=== PATIENT | male | born 1965 | race Caucasian/White ===

== ENCOUNTER 2017-06-16 15:30 | Emergency (ER) | payer SELFPAY ==
[2017-06-16 16:12] LABS: Basophils % (Auto) 0.8 % (0.0-1.8); Eosinophils % (Auto) 3.1 % (0.0-4.3); Hemoglobin 14.8 gm/dl (11.8-15.2); Mean Corpuscular HGB Conc 34 % (32-34); Mean Corpuscular Hemoglobin 30 pg (28-32); Mean Corpuscular Volume 88 fl (84-94); Platelet Count 222 K/mm3 (140-440); Red Blood Count 4.97 M/mm3 (3.65-5.03); Red Cell Distribution Width 13.3 % (13.2-15.2); White Blood Count 6.6 K/mm3 (4.5-11.0)
[2017-06-16 16:33] LABS: Anion Gap 20 mmol/L; BUN/Creatinine Ratio 13; Blood Urea Nitrogen 14 mg/dL (9-20); Calcium 8.8 mg/dL (8.4-10.2); Carbon Dioxide 24 mmol/L (22-30); Chloride 96.2 mmol/L (98-107); Glucose 495 mg/dL (75-100); Potassium 4.5 mmol/L (3.6-5.0); Sodium 136 mmol/L (137-145)
[2017-06-16 16:51] LABS: Bilirubin,Urine NEG (Negative); Blood,Urine NEG (Negative); Ketones,Urine NEG (Negative); Leukocyte Esterase,Urine NEG (Negative); Mucus,Urine FEW /HPF; Nitrite,Urine NEG (Negative); Protein,Urine <15 mg/dL mg/dL (Negative); Urobilinogen,Urine < 2.0 mg/dL (<2.0)
[2017-06-16 16:55] LABS: WBC,Urine < 1.0 /HPF (0.0-6.0)
[2017-06-16] MEDS ORDERED: NACL 0.9% 1000 ML 1,000 ML IV ONE ×3 (20:58→22:41)
[2017-06-16 22:24] VITALS: BP 107/74
--- NOTE | 2017-06-16 22:49 | Emergency Department Report ---
HPI - General Chief Complaint: Hyperglycemia Time Seen by Provider: 06/16/17 20:57 - HPI HPI: This is a 51-year-old male presents to the emergency department with complaint of elevated blood sugar. He went to see the physician at [facility] and was given a prescription for his diabetic medications but has not yet gotten them filled. He was encouraged to come to the emergency department as his blood sugar was greater than 500 when I checked it. He does have a history of [id number] diabetes. He admits to some increased urination frequency and increased thirst but otherwise does not have any chest pain, shortness of breath, abdominal pain, nausea, vomiting or fever. No recent travel or sick contacts at home. ED Past Medical Hx - Past Medical History Previous Medical History?: Yes Hx Diabetes: Yes - Surgical History Past Surgical History?: No - Social History Smoking Status: Current Every Day Smoker Substance Use Type: Alcohol, Prescribed - Medications Home Medications: Home Medications Medication Instructions Recorded Confirmed Last Taken Type Unobtainable 06/16/17 06/16/17 Unknown History ED Review of Systems ROS: Stated complaint: BLOOD SUGAR HIGH Other details as noted in HPI Comment: All other systems reviewed and negative Constitutional: denies: chills, fever Eyes: denies: eye pain, eye discharge, vision change ENT: denies: ear pain, throat pain Respiratory: denies: cough, shortness of breath, wheezing Cardiovascular: denies: chest pain, palpitations Endocrine: increased thirst, increased urine Gastrointestinal: denies: abdominal pain, nausea, diarrhea Genitourinary: frequency. denies: dysuria Musculoskeletal: denies: back pain, joint swelling, arthralgia Skin: denies: rash, lesions Neurological: denies: headache, weakness, paresthesias Physical Exam - Physical Exam Vital Signs: Vital Signs 06/16/17 06/16/17 15:44 22:23 Temperature 97.9 F Pulse Rate 74 64 Respiratory 20 16 Rate Blood Pressure 116/75 Blood Pressure 107/74 [Left] O2 Sat by Pulse 99 98 Oximetry Physical Exam: GENERAL: The patient is well-developed well-nourished. HENT: Normocephalic. Atraumatic. Patient has moist mucous membranes. EYES: Extraocular motions are intact. Pupils equal reactive to light bilaterally. NECK: Supple. Trachea is midline. CHEST/LUNGS: Clear to auscultation. There is no respiratory distress noted. HEART/CARDIOVASCULAR: Regular. There is no tachycardia. There is no gallop rub or murmur. ABDOMEN: Abdomen is soft, nontender. Patient has normal bowel sounds. There is no abdominal distention. SKIN: Skin is warm and dry. NEURO: The patient is awake, alert, and oriented. The patient is cooperative. The patient has no focal neurologic deficits. The patient has normal speech and gait. MUSCULOSKELETAL: There is no tenderness or deformity. There is no limitation range of motion. There is no evidence of acute injury. ED Course Vital Signs 06/16/17 06/16/17 15:44 22:23 Temperature 97.9 F Pulse Rate 74 64 Respiratory 20 16 Rate Blood Pressure 116/75 Blood Pressure 107/74 [Left] O2 Sat by Pulse 99 98 Oximetry ED Medical Decision Making - Lab Data Result diagrams: 06/16/17 15:54 06/16/17 15:54 - Medical Decision Making 51-year-old male presents with hyperglycemia and uncontrolled diabetes. He had been out of his medication for a little while but did get a prescription from his primary care clinic. His blood sugar was about 500. He does not appear to be in diabetic ketoacidosis as there is no venous acidosis and not a significant elevation in the anion gap. He was given IV fluid resuscitation and it did require a few doses of insulin and eventually his blood sugar came down to about 170. The patient does not appear in any acute distress and is asking for discharge home. We discussed trying to stay away from foods that are high in sugar, carbohydrates and starches. He will start his two oral diabetes medications starting in the morning and he has been encouraged to keep a blood sugar log. He will return to the ER with any worsening of symptoms or any acute distress. - Differential Diagnosis DKA, HHNK, Medication noncompliance Critical Care Time: No Critical care attestation.: If time is entered above; I have spent that time in minutes in the direct care of this critically ill patient, excluding procedure time. ED Disposition Clinical Impression: Hyperglycemia Uncontrolled diabetes mellitus Qualifiers: Diabetes mellitus type: type 2 Diabetes mellitus complication status: with hyperglycemia Diabetes mellitus assistant terminal manager insulin use: without group home use Qualified Code(s): E11.65 - Type 2 diabetes mellitus with hyperglycemia Disposition: DC-01 TO HOME OR SELFCARE Is pt being admited?: No Condition: Stable Instructions: Diabetic Hyperglycemia (ED) Additional Instructions: Please follow-up with your primary care physician in the next few days. Try and stay away from foods that are high in sugar, carbohydrates and starches. Keep a blood pressure log. Return to the emergency Department with any worsening of your symptoms or any acute distress. Referrals: PRIMARY CARE, [Primary Care Provider] - 3-5 Days Time of Disposition: 01:14 Print Language: KAZAKH
[2017-06-17] MEDS ORDERED: NACL 0.9% 1000 ML 1,000 ML IV ONE (00:03)
== END 2017-06-17 01:45 | disposition home or self-care (01) ==
LOC: ED 15:30
DX: E11.65 Type 2 diabetes mellitus with hyperglycemia (principal); F17.200 Nicotine dependence, unspecified, uncomplicated
CPT/HCPCS: 36415; 80048; 81001; 82805; 82962; 85025; 96361; 96374; 96376; 99284; J7030; J1815

== ENCOUNTER 2019-07-02 12:09 | Emergency (ER) | payer SELFPAY ==
--- NOTE | 2019-07-02 12:37 | Event Note ---
ED Screening Note ED Screening Note: BS is 369 in triage on states his BG was 500 generalized body aches no vomiting no fever no recent illness has not taken his blood sugar medication 6 months states it was 500 mg BID, does not remember the name This initial assessment/diagnostic orders/clinical plan/treatment(s) is/are subj ect to change based on patients health status, clinical progression and re- assessment by fellow clinical providers in the ED. Further treatment and workup at subsequent clinical providers discretion. Patient/guardian urged not to elope from the ED as their condition may be serious if not clinically assessed and managed. Initial orders include: labs, UA
[2019-07-02 12:52] VITALS: BP 107/75
[2019-07-02] MEDS ORDERED: INSULIN REGULAR, HUMAN 100 UNITS/1 ML IV ONE (12:56)
[2019-07-02] MEDS ORDERED: SODIUM CHLORIDE 0.9% 1000 ML 1,000 ML IV ONE ×2 (12:56→13:39)
--- NOTE | 2019-07-02 13:02 | Emergency Department Report ---
ED General Adult HPI - General Chief complaint: Hyperglycemia Stated complaint: HYPERGLYCEMIA Time Seen by Provider: 07/02/19 12:34 Source: patient, family Mode of arrival: Ambulatory Limitations: Language Barrier - History of Present Illness Initial comments: He is a 53-year-old male with a history of diabetes uncontrolled with medication who presents to ED planing of heartless sugar and mild generalized pain. Patient states he used to take 500 mg of metformin twice a day and ran out of his medication has not taken medication for the past 8 months. Patient states he has been eating well. Patient states he does not have a primary care physician and was unable to follow-up. She denies chest pain, shortness of breath, fever, nausea vomiting and abdominal pain Severity scale (0 -10): 0 - Related Data Previous Rx's Medication Instructions Recorded Last Taken Type metFORMIN [Glucophage] 500 mg PO BID #60 tablet 07/02/19 Unknown Rx Allergies Allergy/AdvReac Type Severity Reaction Status Date / Time No Known Allergies Allergy Unverified 06/16/17 15:42 ED Review of Systems ROS: Stated complaint: HYPERGLYCEMIA Other details as noted in HPI ED Past Medical Hx - Past Medical History Previous Medical History?: Yes Hx Diabetes: Yes - Surgical History Past Surgical History?: No - Social History Smoking Status: Never Smoker Substance Use Type: Alcohol - Medications Home Medications: Home Medications Medication Instructions Recorded Confirmed Last Taken Type metFORMIN [Glucophage] 500 mg PO BID #60 tablet 07/02/19 Unknown Rx ED Physical Exam - General Limitations: Language Barrier General appearance: alert, in no apparent distress - Head Head exam: Present: atraumatic, normocephalic - Eye Eye exam: Present: normal appearance - ENT ENT exam: Present: mucous membranes moist - Neck Neck exam: Present: normal inspection - Respiratory Respiratory exam: Present: normal lung sounds bilaterally. Absent: respiratory distress - Cardiovascular Cardiovascular Exam: Present: regular rate, normal rhythm. Absent: systolic murmur, diastolic murmur, rubs, gallop - GI/Abdominal GI/Abdominal exam: Present: soft, normal bowel sounds. Absent: distended, tenderness, guarding, mass - Rectal Rectal exam: Present: deferred - Extremities Exam Extremities exam: Present: normal inspection - Back Exam Back exam: Present: normal inspection - Neurological Exam Neurological exam: Present: alert, oriented X3, normal gait - Psychiatric Psychiatric exam: Present: normal affect, normal mood - Skin Skin exam: Present: warm, dry, intact, normal color. Absent: rash ED Course Vital Signs 07/02/19 07/02/19 12:10 12:37 Temperature 98 F Pulse Rate 90 82 Respiratory 18 14 Rate Blood Pressure 112/82 Blood Pressure 107/75 [Left] O2 Sat by Pulse 98 97 Oximetry ED Medical Decision Making - Lab Data Result diagrams: 07/02/19 12:57 07/02/19 12:57 Laboratory Last Values WBC 8.0 K/mm3 (4.5-11.0) 07/02/19 12:57 RBC 5.39 M/mm3 (3.65-5.03) H 07/02/19 12:57 Hgb 16.4 gm/dl (11.8-15.2) H 07/02/19 12:57 Hct 48.0 % (35.5-45.6) H 07/02/19 12:57 MCV 89 fl (84-94) 07/02/19 12:57 MCH 31 pg (28-32) 07/02/19 12:57 MCHC 34 % (32-34) 07/02/19 12:57 RDW 12.9 % (13.2-15.2) L 07/02/19 12:57 Plt Count 256 K/mm3 (140-440) 07/02/19 12:57 Lymph % (Auto) 31.7 % (13.4-35.0) 07/02/19 12:57 Coles % (Auto) 7.1 % (0.0-7.3) 07/02/19 12:57 Eos % (Auto) 2.1 % (0.0-4.3) 07/02/19 12:57 Baso % (Auto) 0.8 % (0.0-1.8) 07/02/19 12:57 Lymph # 2.5 K/mm3 (1.2-5.4) 07/02/19 12:57 Coles # 0.6 K/mm3 (0.0-0.8) 07/02/19 12:57 Eos # 0.2 K/mm3 (0.0-0.4) 07/02/19 12:57 Baso # 0.1 K/mm3 (0.0-0.1) 07/02/19 12:57 Seg Neutrophils % 58.3 % (40.0-70.0) 07/02/19 12:57 Seg Neutrophils # 4.6 K/mm3 (1.8-7.7) 07/02/19 12:57 VBG pH 7.330 (7.320-7.420) 07/02/19 12:57 Sodium 137 mmol/L (137-145) 07/02/19 12:57 Potassium 4.6 mmol/L (3.6-5.0) 07/02/19 12:57 Chloride 96.6 mmol/L (98-107) L 07/02/19 12:57 Carbon Dioxide 27 mmol/L (22-30) 07/02/19 12:57 Anion Gap 18 mmol/L 07/02/19 12:57 BUN 17 mg/dL (9-20) 07/02/19 12:57 Creatinine 1.1 mg/dL (0.8-1.5) 07/02/19 12:57 Estimated GFR > 60 ml/min 07/02/19 12:57 BUN/Creatinine Ratio 15 % 07/02/19 12:57 Glucose 469 mg/dL (75-100) H 07/02/19 12:57 POC Glucose 369 (70-105) H 07/02/19 12:23 Calcium 9.5 mg/dL (8.4-10.2) 07/02/19 12:57 Total Bilirubin 1.10 mg/dL (0.1-1.2) 07/02/19 12:57 AST 11 units/L (5-40) 07/02/19 12:57 ALT 22 units/L (7-56) 07/02/19 12:57 Alkaline Phosphatase 126 units/L (35-129) 07/02/19 12:57 Total Creatine Kinase 49 units/L (55-170) L 07/02/19 12:57 Total Protein 7.5 g/dL (6.3-8.2) 07/02/19 12:57 Albumin 4.8 g/dL (3.9-5) 07/02/19 12:57 Albumin/Globulin Ratio 1.8 % 07/02/19 12:57 Urine Color Straw (Yellow) 07/02/19 13:03 Urine Turbidity Clear (Clear) 07/02/19 13:03 Urine pH 5.0 (5.0-7.0) 07/02/19 13:03 Ur Specific Douglass 1.030 (1.003-1.030) 07/02/19 13:03 Urine Protein <15 mg/dl mg/dL (Negative) 07/02/19 13:03 Urine Glucose (UA) >=500 mg/dL (Negative) 07/02/19 13:03 Urine Ketones Neg mg/dL (Negative) 07/02/19 13:03 Urine Blood Neg (Negative) 07/02/19 13:03 Urine Nitrite Neg (Negative) 07/02/19 13:03 Urine Bilirubin Neg (Negative) 07/02/19 13:03 Urine Urobilinogen < 2.0 mg/dL (<2.0) 07/02/19 13:03 Ur Leukocyte Esterase Neg (Negative) 07/02/19 13:03 Urine WBC (Auto) < 1.0 /HPF (0.0-6.0) 07/02/19 13:03 Urine RBC (Auto) 2.0 /HPF (0.0-6.0) 07/02/19 13:03 U Epithel Cells (Auto) < 1.0 /HPF (0-13.0) 07/02/19 13:03 Urine Mucus Few /HPF 07/02/19 13:03 - Medical Decision Making 53-year-old male with a history of diabetes presents with hyperglycemia. Patient labs were drawn. She received 1 L of fluids, 10 units of insulin. Blood glucose decreased prior to discharge. Patient will be going home on refill medications for metformin. Patient unknowable neurological deficit or acute distress in the ED. Constipation is important to follow-up with his primary care physician. Discussed the patient to take his medication twice a day Critical care attestation.: If time is entered above; I have spent that time in minutes in the direct care of this critically ill patient, excluding procedure time. ED Disposition Clinical Impression: Hyperglycemia due to type 2 diabetes mellitus Disposition: -01 TO HOME OR SELFCARE Is pt being admited?: No Does the pt Need Aspirin: No Condition: Stable Instructions: Diabetes Mellitus Type 2 in Adults (ED) Additional Instructions: Make sure to follow up with the primary care physician as discussed. Take all your medications as you've been prescribed. If you have any worsening symptoms or develop new symptoms please return to ED immediately. Prescriptions: metFORMIN [Glucophage] 500 mg PO BID #60 tablet Referrals: [facility] [Outside] - 3-5 Days [facility] [Outside] - 3-5 Days Forms: Accompanied Note, Work/School Release Form(ED) Print Language: YORUBA
[2019-07-02 13:13] LABS: Basophils # (Auto) 0.1 K/mm3 (0.0-0.1); Basophils % (Auto) 0.8 % (0.0-1.8); Eosinophils # (Auto) 0.2 K/mm3 (0.0-0.4); Eosinophils % (Auto) 2.1 % (0.0-4.3); Hemoglobin 16.4 gm/dl (11.8-15.2); Lymphocytes # (Auto) 2.5 K/mm3 (1.2-5.4); Lymphocytes % (Auto) 31.7 % (13.4-35.0); Mean Corpuscular HGB Conc 34 % (32-34); Mean Corpuscular Volume 89 fl (84-94); Monocytes # (Auto) 0.6 K/mm3 (0.0-0.8); Monocytes % (Auto) 7.1 % (0.0-7.3); Platelet Count 256 K/mm3 (140-440); Red Blood Count 5.39 M/mm3 (3.65-5.03); Red Cell Distribution Width 12.9 % (13.2-15.2)
[2019-07-02 13:26] LABS: Bilirubin,Urine NEG (Negative); Blood,Urine NEG (Negative); Color,Urine Straw (Yellow); Mucus,Urine FEW /HPF; Protein,Urine <15 mg/dL mg/dL (Negative); Urobilinogen,Urine < 2.0 mg/dL (<2.0); WBC,Urine < 1.0 /HPF (0.0-6.0)
[2019-07-02 13:30] LABS: Alanine Aminotransferase 22 units/L (7-56); Albumin 4.8 g/dL (3.9-5); BUN/Creatinine Ratio 15; Blood Urea Nitrogen 17 mg/dL (9-20); Calcium 9.5 mg/dL (8.4-10.2); Hemolysis Index 5
== END 2019-07-02 16:00 | disposition home or self-care (01) ==
LOC: ED 12:09
DX: E11.65 Type 2 diabetes mellitus with hyperglycemia (principal); Z79.84 Long term (current) use of oral hypoglycemic drugs
CPT/HCPCS: 36415; 80053; 81001; 82550; 82805; 82962; 85025; 96361; 96374; 99284; J7030; J1815